=== PATIENT | female | born 1985 | race African-American/Black ===

== ENCOUNTER 2020-01-10 16:08 | Emergency (ER) | payer SELFPAY ==
[~2020-01-10] VITALS: Ht 154.9 cm; Wt 68.0 kg
[2020-01-10] MEDS ORDERED: KETOROLAC 15 MG/ML VIAL. IV STA (16:23)
[2020-01-10] MEDS ORDERED: DEXAMETHASONE 4 MG TABLET PO STA (16:23)
--- NOTE | 2020-01-10 16:29 | PHYS DOC ---
Adult General Chief Complaint Chief Complaint: FLU SYMPTOM HPI HPI Patient is a 34 year old female who presents with fever, cough, runny nose, body aches, diarrhea, nausea this been ongoing since Tuesday. The patient not been drinking fluids very well at home. She rates her pain is 9 out of 10 in severity and sharp. Has not take any medications for her illness at home. Complete ROS were reviewed and found to be within normal limits, except as documented in the HPI (JOVITA SHANKAR APRN) Current Medications Current Medications Current Medications Medications (Trade) Dose Ordered Sig/Lc Start Time Stop Time Status Last Admin Dose Admin Acetaminophen (Tylenol) 1,000 mg 1X ONCE 01/10/20 16:30 01/10/20 16:43 DC 01/10/20 17:24 1,000 MG Albuterol/ Ipratropium (Duoneb) 3 ml 1X ONCE 01/10/20 16:30 01/10/20 16:43 DC 01/10/20 17:05 3 ML Dexamethasone (Decadron) 10 mg 1X STAT 01/10/20 16:23 01/10/20 16:43 DC 01/10/20 17:24 10 MG Ketorolac Tromethamine (Toradol 15mg Vial) 10 mg 1X STAT 01/10/20 16:23 01/10/20 16:43 DC 01/10/20 17:25 10 MG Magnesium Sulfate/ Dextrose 100 ml @ 100 mls/hr 1X STAT 01/10/20 17:48 01/10/20 18:47 DC 01/10/20 18:41 100 MLS/HR Ondansetron HCl (Zofran) 4 mg 1X ONCE 01/10/20 16:30 01/10/20 16:43 DC 01/10/20 17:25 4 MG Potassium Chloride (Klor-Con) 40 meq 1X ONCE 01/10/20 18:00 01/10/20 18:01 DC 01/10/20 18:41 40 MEQ Sodium Chloride 1,000 ml @ 1,000 mls/hr 1X ONCE 01/10/20 18:30 01/10/20 19:29 DC 01/10/20 18:42 1,000 MLS/HR (ROBERTH PISANO MD) Allergies Allergies Allergies Coded Allergies Type Severity Reaction Last Updated Verified No Known Drug Allergies 01/10/20 No (ROBERTH PISANO MD) Physical Exam Physical Exam Constitutional: Well developed, well nourished, no acute distress, non-toxic appearance. [] HENT: Normocephalic, atraumatic, bilateral external ears normal, oropharynx moist, no oral exudates, nose normal. [] Eyes: PERRLA, EOMI, conjunctiva normal, no discharge. [] Neck: Normal range of motion, no tenderness, supple, no stridor. [] Cardiovascular:Heart rate regular rhythm, no murmur [] Lungs & Thorax: Bilateral breath sounds have scattered wheezing. Skin: Warm, dry, no erythema, no rash. [] Neurologic: Alert and oriented X 3, normal motor function, normal sensory function, no focal deficits noted. [] Psychologic: Affect normal, judgement normal, mood normal. [] (JOVITA SHANKAR APRN) Current Patient Data Vital Signs Vital Signs Date Time Temp Pulse Resp B/P (MAP) Pulse Ox O2 Delivery O2 Flow Rate FiO2 01/10/20 19:09 104 16 143/78 (99) 100 Room Air 01/10/20 16:19 99.2 99.2 (ROBERTH PISANO MD) Lab Values Laboratory Tests Test 01/10/20 16:50 White Blood Count 5.1 x10^3/uL (4.0-11.0) Red Blood Count 4.00 x10^6/uL (3.50-5.40) Hemoglobin 8.7 g/dL (12.0-15.5) L Hematocrit 28.6 % (36.0-47.0) L Mean Corpuscular Volume 72 fL (79-100) L Mean Corpuscular Hemoglobin 22 pg (25-35) L Mean Corpuscular Hemoglobin Concent 31 g/dL (31-37) Red Cell Distribution Width 23.0 % (11.5-14.5) H Platelet Count 181 x10^3/uL (140-400) Neutrophils (%) (Auto) 62 % (31-73) Lymphocytes (%) (Auto) 33 % (24-48) Monocytes (%) (Auto) 4 % (0-9) Eosinophils (%) (Auto) 0 % (0-3) Basophils (%) (Auto) 1 % (0-3) Neutrophils # (Auto) 3.2 x10^3/uL (1.8-7.7) Lymphocytes # (Auto) 1.7 x10^3/uL (1.0-4.8) Monocytes # (Auto) 0.2 x10^3/uL (0.0-1.1) Eosinophils # (Auto) 0.0 x10^3/uL (0.0-0.7) Basophils # (Auto) 0.0 x10^3/uL (0.0-0.2) Segmented Neutrophils % 72 % (35-66) H Band Neutrophils % 6 % (0-9) Lymphocytes % 21 % (24-48) L Monocytes % 1 % (0-10) Platelet Estimate Adequate (ADEQUATE) Hypochromasia Mod Poikilocytosis Slight Anisocytosis Mod Microcytosis Mod Sodium Level 141 mmol/L (136-145) Potassium Level 3.2 mmol/L (3.5-5.1) L Chloride Level 102 mmol/L (98-107) Carbon Dioxide Level 26 mmol/L (21-32) Anion Gap 13 (6-14) Blood Urea Nitrogen 6 mg/dL (7-20) L Creatinine 0.6 mg/dL (0.6-1.0) Estimated GFR (Cockcroft-Gault) 136.9 BUN/Creatinine Ratio 10 (6-20) Glucose Level 89 mg/dL (70-99) Calcium Level 9.1 mg/dL (8.5-10.1) Magnesium Level 1.1 mg/dL (1.8-2.4) L Total Bilirubin 1.5 mg/dL (0.2-1.0) H Aspartate Amino Transferase (AST) 322 U/L (15-37) H Alanine Aminotransferase (ALT) 104 U/L (14-59) H Alkaline Phosphatase 196 U/L (46-116) H Total Protein 8.6 g/dL (6.4-8.2) H Albumin 3.4 g/dL (3.4-5.0) Albumin/Globulin Ratio 0.7 (1.0-1.7) L Laboratory Tests 01/10/20 16:50 Laboratory Tests 01/10/20 16:50 (ROBERTH PISANO MD) Lab Values Laboratory Tests Test 01/10/20 16:50 White Blood Count 5.1 x10^3/uL (4.0-11.0) Red Blood Count 4.00 x10^6/uL (3.50-5.40) Hemoglobin 8.7 g/dL (12.0-15.5) L Hematocrit 28.6 % (36.0-47.0) L Mean Corpuscular Volume 72 fL (79-100) L Mean Corpuscular Hemoglobin 22 pg (25-35) L Mean Corpuscular Hemoglobin Concent 31 g/dL (31-37) Red Cell Distribution Width 23.0 % (11.5-14.5) H Platelet Count 181 x10^3/uL (140-400) Neutrophils (%) (Auto) 62 % (31-73) Lymphocytes (%) (Auto) 33 % (24-48) Monocytes (%) (Auto) 4 % (0-9) Eosinophils (%) (Auto) 0 % (0-3) Basophils (%) (Auto) 1 % (0-3) Neutrophils # (Auto) 3.2 x10^3/uL (1.8-7.7) Lymphocytes # (Auto) 1.7 x10^3/uL (1.0-4.8) Monocytes # (Auto) 0.2 x10^3/uL (0.0-1.1) Eosinophils # (Auto) 0.0 x10^3/uL (0.0-0.7) Basophils # (Auto) 0.0 x10^3/uL (0.0-0.2) Segmented Neutrophils % 72 % (35-66) H Band Neutrophils % 6 % (0-9) Lymphocytes % 21 % (24-48) L Monocytes % 1 % (0-10) Platelet Estimate Adequate (ADEQUATE) Hypochromasia Mod Poikilocytosis Slight Anisocytosis Mod Microcytosis Mod Sodium Level 141 mmol/L (136-145) Potassium Level 3.2 mmol/L (3.5-5.1) L Chloride Level 102 mmol/L (98-107) Carbon Dioxide Level 26 mmol/L (21-32) Anion Gap 13 (6-14) Blood Urea Nitrogen 6 mg/dL (7-20) L Creatinine 0.6 mg/dL (0.6-1.0) Estimated GFR (Cockcroft-Gault) 136.9 BUN/Creatinine Ratio 10 (6-20) Glucose Level 89 mg/dL (70-99) Calcium Level 9.1 mg/dL (8.5-10.1) Magnesium Level 1.1 mg/dL (1.8-2.4) L Total Bilirubin 1.5 mg/dL (0.2-1.0) H Aspartate Amino Transferase (AST) 322 U/L (15-37) H Alanine Aminotransferase (ALT) 104 U/L (14-59) H Alkaline Phosphatase 196 U/L (46-116) H Total Protein 8.6 g/dL (6.4-8.2) H Albumin 3.4 g/dL (3.4-5.0) Albumin/Globulin Ratio 0.7 (1.0-1.7) L Laboratory Tests 01/10/20 16:50 Laboratory Tests 01/10/20 16:50 (JOVITA SHANKAR APRN) EKG EKG [] (JOVITA SHANKAR APRN) Radiology/Procedures Radiology/Procedures [][facility] [address] [place] [address] IMAGING REPORT Signed PATIENT: DOUGLAS OZUNA ACCOUNT: [id number] : 1985 LOCATION: ER AGE: 34 SEX: F EXAM STATUS: REG ER ORD. PHYSICIAN: JOVITA SHANKAR APRN REASON: cough, fever, WAITING ON PREG TEST @1630 PROCEDURE: CHEST PA & LATERAL Exam: Chest 2 views INDICATION: Cough, fever TECHNIQUE: Frontal and lateral views the chest Comparisons: 01/10/2020 FINDINGS: The cardiomediastinal silhouette and pulmonary vessels are within normal limits. The lung and pleural spaces are clear. IMPRESSION: No acute cardiopulmonary process. Electronically signed by: Jennie Kay MD (01/10/2020 4:42 PM) [id number] DICTATED and SIGNED BY: JENNIE KAY MD DATE: 01/10/20 164 (JOVITA SHANKAR APRN) Course & Med Decision Making Course & Med Decision Making Pertinent Labs and Imaging studies reviewed. (See chart for details) Patient has been having flulike symptoms have been ongoing since Tuesday. Offered to test for the flu but the patient declined she did not want something of her nose. The patient has been having trouble keeping fluids down will check basic labs, get a chest x-ray, and give supportive care. Will give fluids, breathing treatment, and nausea medicine. The patient appears to have the Flu clinically. Discussed with patient the importance of drinking plenty of fluids. I also discussed the importance of rest. It was discussed with the patient that she is contagious and to stay away from others until it has been a week since the start of her symptoms. Discussed with the patient that she can take Zyrtec per label instructions for runny nose. Also discussed the proper control of fever by rotating Tylenol and Ibuprofen at home. Will give the patient Decadron in the ER for symptom control. Will also prescribe Zofran for nausea. Labs were unremarkable with exception of potassium of 3.2, mag of 1.1 and elevated liver enzymes. I have no labs to compare. Will have patient visit primary care doctor and have liver enzymes rechecked in 1 week. Patient states that she has been told she has elevated liver enzymes in the past. (JOVITA SHANKAR APRN) Course & Med Decision Making I was not involved in the care of this patient after 1800 on 01/10/2020. (ROBERTH PISANO MD) Dragon Disclaimer Dragon Disclaimer This electronic medical record was generated, in whole or in part, using a voice recognition dictation system. (JOVITA SHANKAR APRN) Departure Departure Impression: Primary Impression: Elevated liver enzymes Additional Impressions: Influenza Hypomagnesemia Hypokalemia Disposition: 01 HOME, SELF-CARE Condition: STABLE Referrals: NO PCP (PCP) Patient Instructions: Influenza A (H1N1) Additional Instructions: Thank you for visiting [facility]. We appreciate you trusting us with your care. If any additional problems come up don't hesitate to return to visit us. Please follow up with your primary care provider so they can plan additional care if needed and know about the problem that you had. If symptoms worsen come back to the Emergency Department. Any concerning symptoms that start such as chest pain, shortness of air, weakness or numbness on one side of the body, running high fevers or any other concerning symptoms return to the ER. Please fill your medications at any pharmacy and follow the prescription instructions. Please drink plenty of fluids. If unable to keep fluids down please return to ER. Please get Tylenol and Ibuprofen over the counter. Give each medication every 6 hours as directed by the medication labels. In order to utilize the peak of the medications stagger the medications to where the child is getting one of the medications every 3 hours. For example if you give Ibuprofen at 3 PM, you then give Tylenol at 6 PM and Ibuprofen again at 9 PM, and then Tylenol at midnight. Please get Zyrtec over the counter and take per label instructions for runny nose. Scripts Ondansetron (ONDANSETRON ODT) 4 Mg Tab.rapdis 1 TAB PO PRN Q6-8HRS PRN for NAUSEA, #20 TAB Prov: JOVITA SHANKAR APRN 01/10/20 Problem Qualifiers JOVITA SHANKAR APRN Jan 10, 2020 16:29 ORBERTH PISANO MD Jan 11, 2020 06:29
[2020-01-10] MEDS ORDERED: IV NORMAL SALINE 1000ML BAG 1,000 ML IV ONE ×2 (16:30→18:30)
[2020-01-10] MEDS ORDERED: ONDANSETRON PF 4 MG/2 ML VIAL. IV ONE (16:30)
[2020-01-10] MEDS ORDERED: ACETAMINOPHEN 500 MG TABLET PO ONE (16:30)
[2020-01-10] MEDS ORDERED: IPRATRPIUM/ALBUTEROL 0.5/2.5MG 3 ML NEBU. NEB ONE (16:30)
--- NOTE | 2020-01-10 16:44 | RAD ---
Exam: Chest 2 views INDICATION: Cough, fever TECHNIQUE: Frontal and lateral views the chest Comparisons: 01/10/2020 FINDINGS: The cardiomediastinal silhouette and pulmonary vessels are within normal limits. The lung and pleural spaces are clear. IMPRESSION: No acute cardiopulmonary process. Electronically signed by: Jennie Reddy MD (01/10/2020 4:42 PM) [id number]
[2020-01-10 17:09] LABS: BASO % 1 % (0-3); EOS % 0 % (0-3); HEMATOCRIT 28.6 % (36.0-47.0); HEMOGLOBIN 8.7 g/dL (12.0-15.5); LYMPH # 1.7 x10^3/uL (1.0-4.8); LYMPH % 33 % (24-48); MEAN CORPUSCULAR HEMOGLOBIN 22 pg (25-35); MEAN CORPUSCULAR HGB CONC 31 g/dL (31-37); MEAN CORPUSCULAR VOLUME 72 fL (79-100); MONO # 0.2 x10^3/uL (0.0-1.1); MONO % 4 % (0-9); NEUT # 3.2 x10^3/uL (1.8-7.7); NEUT % 62 % (31-73); PLATELET COUNT 181 x10^3/uL (140-400); WHITE BLOOD COUNT 5.1 x10^3/uL (4.0-11.0)
[2020-01-10 17:20] LABS: CALCIUM 9.1 mg/dL (8.5-10.1); CREATININE 0.6 mg/dL (0.6-1.0); GFR 136.9; POTASSIUM 3.2 mmol/L (3.5-5.1)
[2020-01-10 17:27] LABS: ALBUMIN 3.4 g/dL (3.4-5.0); ALBUMIN/GLOBULIN RATIO 0.7 (1.0-1.7); MAGNESIUM 1.1 mg/dL (1.8-2.4); TOTAL BILIRUBIN 1.5 mg/dL (0.2-1.0); TOTAL PROTEIN 8.6 g/dL (6.4-8.2)
[2020-01-10 17:35] LABS: % BANDS 6 % (0-9); ANISOCYTOSIS MOD; HYPOCHROMIA MOD; MICROCYTOSIS MOD; PLT ESTIMATE ADEQUATE (ADEQUATE); POIKILOCYTOSIS SLIGHT
[2020-01-10 17:41] LABS: % LYMPHS 21 % (24-48); % MONOS 1 % (0-10); % SEGS 72 % (35-66)
[2020-01-10] MEDS ORDERED: MAGNESIUM SULFATE 1GM 100 ML IV STA (17:48)
[2020-01-10] MEDS ORDERED: POTASSIUM CHLORIDE 20 MEQ TABLET.ER. PO ONE (18:00)
[2020-01-10] MEDS ORDERED: ONDA4TAB12 PO (18:30)
[2020-01-10 19:09] VITALS: BP 143/78
== END 2020-01-10 19:46 | disposition home or self-care (01) ==
LOC: ER 16:08
DX: J11.1 Influenza due to unidentified influenza virus with other respiratory manifestations (principal); R94.5 Abnormal results of liver function studies; E83.42 Hypomagnesemia; E87.6 Hypokalemia; R11.0 Nausea; R19.7 Diarrhea, unspecified; Z79.899 Other long term (current) drug therapy
CPT/HCPCS: 36415; 71046; 80053; 83735; 85007; 85025; 94640; 96361; 96365; 96375; 99285; J1885; J2405; J3475; J7030; J8540